=== PATIENT | male | born 1980 | race Caucasian/White ===

== ENCOUNTER → 2022-01-07 | Outpatient (CLI) | payer OTHER ==
[2022-01-07 17:27] LABS: BLOOD UREA NITROGEN 11 MG/DL (7-18); GLOMERULAR FILTRATION RATE > 60.0 (>60)
== END ==
LOC: M LAB 16:31
PROVIDERS: ATTEND Internal Medicine Pulmonary Disease
DX: R91.8 Other nonspecific abnormal finding of lung field (principal)

== ENCOUNTER → 2022-01-08 | Outpatient (CLI) | payer OTHER ==
[~2022-01-08] MED LIST: ISOVUE-370 76% 100ML VIAL As Ordered ONE
== END ==
LOC: M RAD 14:46
PROVIDERS: ATTEND Internal Medicine Pulmonary Disease
DX: R91.8 Other nonspecific abnormal finding of lung field (principal)
CPT/HCPCS: 71260; Q9967

== ENCOUNTER → 2022-03-08 | Outpatient (CLI) | payer OTHER | LOC: M PLARAD 12:43 | PROVIDERS: ATTEND Internal Medicine Pulmonary Disease | DX: R91.8 Other nonspecific abnormal finding of lung field (principal) | CPT/HCPCS: 78815; A9552 ==

== ENCOUNTER → 2022-03-19 | Outpatient (CLI) | payer OTHER ==
[~2022-03-19] MED LIST changes: +AMLO10TA PO; +ATOR40TA75 PO; +BISO10TA14 PO; +FURO40TA2 PO; +HYDR500C3 PO; -ISOVUE-370 76% 100ML VIAL As Ordered ONE; +LEVO88TA3 PO; +LISI40TA4 PO; +POTA1TAB23 PO; +VERA120T71 PO; +ZOLO100T PO
[2022-03-19 09:53] LABS: PLATELET COUNT, AUTOMATED 497 10^3/uL (150-450)
[2022-03-19 10:08] LABS: INR 0.93; PARTIAL THROMBOPLASTIN TIME 28.9 SECONDS (24.8-34.2); PROTHROMBIN TIME 12.7 SECONDS (12.5-14.5)
== END ==
LOC: M LAB 09:11
PROVIDERS: ATTEND Internal Medicine Pulmonary Disease
DX: Z01.812 Encounter for preprocedural laboratory examination (principal)

== ENCOUNTER 2022-03-24 06:54 | Day surgery (SDC) | payer OTHER ==
[~2022-03-24] VITALS: Ht 185.4 cm; Wt 137.4 kg
[2022-03-24] MEDS ORDERED: LR 1,000 ML IV SCH ×2 (07:10→10:45)
[2022-03-24] MEDS ORDERED: CETACAINE SPRAY 5GM As Ordered ONE (07:20)
[2022-03-24] MEDS ORDERED: LIDOCAINE 1% SDV 30ML VIAL As Ordered ONE (07:20)
[2022-03-24] MEDS ORDERED: propofoL 200 MG/20 ML VIAL As Ordered ONE ×2 (08:44→08:51)
[2022-03-24] MEDS ORDERED: LIDOCAINE 2% 100MG/5ML SDV (FOR ANES.) As Ordered ONE (08:44)
[2022-03-24] MEDS ORDERED: ROCURONIUM BROMIDE 50MG/5ML VIAL As Ordered ONE (08:44)
[2022-03-24] MEDS ORDERED: ONDANSETRON 4MG 2ML VIAL As Ordered ONE (08:44)
[2022-03-24] MEDS ORDERED: MIDAZOLAM INJ 2MG/2ML VIAL As Ordered ONE (08:46)
[2022-03-24] MEDS ORDERED: fentaNYL 100 MCG/2 ML INJECTION As Ordered ONE (08:46)
[2022-03-24] MEDS ORDERED: EPINEPHrine 1MG/10ML SYRINGE 1.5IN As Ordered ONE (09:31)
[2022-03-24] MEDS ORDERED: SUGAMMADEX SODIUM 500 MG/5 ML VIAL (BRIDION) As Ordered ONE (10:13)
[2022-03-24] MEDS ORDERED: ONDANSETRON 4MG 2ML VIAL IV PRN (10:45)
[2022-03-24] MEDS ORDERED: MORPHINE 2 MG/ML 1ML VIAL IV PRN (10:45)
[2022-03-24] MEDS ORDERED: oxyCODONE 5MG TAB PO PRN (10:45)
[2022-03-24] MEDS ORDERED: fentaNYL 100 MCG/2 ML INJECTION IV PRN (10:45)
[2022-03-24 12:15] VITALS: BP 158/84
[2022-03-25] MEDS ORDERED: LIDOCAINE PRES-FREE 2% 10ML AMP INH ONE (06:00)
[2022-03-25] MEDS ORDERED: ALBUTEROL SULFATE 2.5MG/0.5ML INH NEB SOLN INH ONE (06:00)
== END 2022-03-24 12:30 | disposition home or self-care (01) ==
LOC: M SDC 06:54
PROVIDERS: ATTEND Internal Medicine Pulmonary Disease
DX: R59.0 Localized enlarged lymph nodes (principal); R91.8 Other nonspecific abnormal finding of lung field; I16.0 Hypertensive urgency; E03.9 Hypothyroidism, unspecified; E78.5 Hyperlipidemia, unspecified; D47.3 Essential (hemorrhagic) thrombocythemia; Z85.71 Personal history of Hodgkin lymphoma; F41.9 Anxiety disorder, unspecified; F32.A Depression, unspecified; Z92.21 Personal history of antineoplastic chemotherapy; Z79.899 Other long term (current) drug therapy; Z79.890 Hormone replacement therapy; Z87.891 Personal history of nicotine dependence
CPT/HCPCS: 31629; 31652; 71045; 87070; 87102; 87116; 87205; 87206; 88173; 88305; 93005; J1100; J2405

== ENCOUNTER → 2023-01-10 | Outpatient (CLI) | payer OTHER ==
[~2023-01-10] MED LIST changes: +SILD100T PO; +SPIR-10 PO; +VERA240C3 PO
[2023-01-10 15:33] LABS: PLATELET COUNT, AUTOMATED 364 10^3/uL (150-450)
[2023-01-10 15:51] LABS: PROTHROMBIN TIME 12.9 SECONDS (12.5-14.5)
== END ==
LOC: M LAB 14:24
PROVIDERS: ATTEND Physician Assistant
DX: R91.8 Other nonspecific abnormal finding of lung field (principal)

== ENCOUNTER → 2023-01-10 | Outpatient (CLI) | payer OTHER ==
[~2023-01-10] MED LIST changes: -SILD100T PO; -VERA240C3 PO
== END ==
LOC: M RAD 14:22
PROVIDERS: ATTEND Otolaryngology
DX: E04.2 Nontoxic multinodular goiter (principal)

== ENCOUNTER → 2023-01-12 | Outpatient (CLI) | payer OTHER ==
[~2023-01-12] MED LIST changes: +HOME MED LIST COMPLETE! XX SCH; +LIDOCAINE 1% MDV 20ML VIAL As Ordered ONE; +SILD100T PO; +VERA240C3 PO
[2023-01-12 08:10] VITALS: TEMP 97.7
[2023-01-12 13:40] VITALS: BP 131/62; O2SAT 96
== END ==
LOC: M IRPRO 07:50
PROVIDERS: ATTEND Physician Assistant
DX: R91.8 Other nonspecific abnormal finding of lung field (principal)

== ENCOUNTER → 2023-02-14 | Outpatient (CLI) | payer OTHER ==
[~2023-02-14] MED LIST changes: -HOME MED LIST COMPLETE! XX SCH
[2023-02-14 09:35] VITALS: TEMP 96.5
[2023-02-14 10:15] VITALS: BP 166/93; O2SAT 96
== END ==
LOC: M IRPRO 09:27
PROVIDERS: ATTEND Otolaryngology
DX: D44.0 Neoplasm of uncertain behavior of thyroid gland (principal)